=== PATIENT | male | born 1985 | race Caucasian/White ===

== ENCOUNTER 2023-06-17 22:26 | Emergency (ER) | payer SELFPAY ==
[2023-06-17 22:33] VITALS: BP 158/98; PULSE 80; RESP 18; TEMP 36.8; O2SAT 99
--- NOTE | 2023-06-17 22:40 | W.ED.GENAD ---
Discharge Plan Disposition Patient Disposition: Home Condition: Good Discharge Details Clinical Impression: Pain, dental Primary Care Provider: None,None ED Provider: Darrel Dover Home Meds and New Rx's Prescriptions: New amoxicillin-pot clavulanate 875-125 mg tablet 1 tab PO BID Qty: 20 0RF Discharge Instructions Instructions: Toothache (ED) Additional Instructions: The block we administered should help improve your pain. Please take 800 mg of ibuprofen every 6 hours and 1000 mg of Tylenol every 6 hours to help with the inflammation and pain. These are the maximum doses. Please take the antibiotic as directed to help with the infection in your tooth. Please use the dental list that we have provided to contact the dentist for prompt follow-up and evaluation for tooth removal. If you notice any worsening of your symptoms, or any new symptoms such as difficulty swallowing, difficulty breathing, vomiting, diarrhea, fever, chills, shortness of breath, chest pain, numbness, weakness, or fainting , please return immediately to the emergency department for reevaluation. Please follow up with your primary care provider as soon as possible for reassessment and reevaluation. As always, it was a pleasure participating in your medical care today. Medical Decision Making This is a very pleasant 37-year-old male with no significant past medical history who presents today for dental pain. Patient states that about 6 months ago his left lower posterior molar just anterior to the wisdom tooth broke off. Since then it has been causing mild pain, however over the last few days it has become notably painful. Pain is made worse with chewing. He did try calling a dentist today but no one could get him in to have the tooth pulled. He denies fever or chills. He denies difficulty swallowing or breathing. He is not on any antibiotics. No other complaints at this time. He did take Tylenol at home but this did not relieve the pain at all. Exam demonstrates notable dental caries throughout, no evidence of periapical abscess, swelling, or airway compromise. No evidence of Ludewig's angina. Suspect pulpitis. Discussed risks and benefits of dental block, patient elected voluntarily and verbally to receive dental block after risks and benefits were discussed. Dental block performed and patient has near complete resolution of his pain. Will give Augmentin for home use, and the first dose here. Dental sheet was given for patient. Will give Tylenol Motrin here as well. Recommend continued NSAIDs and antibiotic outpatient with prompt dental follow-up. Discussed red flags for which to return. I have extensively reviewed the treatment plan and discharge instructions with the patient. I have addressed all patient concerns at this time. The patient was made aware of what symptoms to monitor for that would warrant a return to the emergency department. Discussed the plan with the patient, they demonstrate verbal understanding and agreement with our assessment and plan at this time. The documentation in this chart was dictated using [employer] dictation software. Please excuse any dictation errors. HPI General Date/Time Provider Initiated Documentation: 06/17/23 22:28. HPI Narrative: This is a very pleasant 37-year-old male with no significant past medical history who presents today for dental pain. Patient states that about 6 months ago his left lower posterior molar just anterior to the wisdom tooth broke off. Since then it has been causing mild pain, however over the last few days it has become notably painful. Pain is made worse with chewing. He did try calling a dentist today but no one could get him in to have the tooth pulled. He denies fever or chills. He denies difficulty swallowing or breathing. He is not on any antibiotics. No other complaints at this time. He did take Tylenol at home but this did not relieve the pain at all. Related Data Home Medications Medication Instructions Recorded Confirmed amoxicillin 875 mg-potassium 1 tab PO BID #20 tabs 06/17/23 clavulanate 125 mg tablet Previous Rx's Medication Instructions Recorded amoxicillin 875 mg-potassium 1 tab PO BID #20 tabs 06/17/23 clavulanate 125 mg tablet Allergies Allergy/AdvReac Type Severity Reaction Status Date / Time No Known Allergies Allergy Unverified 06/17/23 22:41 General Stated Complaint: DentalOral SHAW: 4 Review of Systems All systems reviewed & are unremarkable except as noted in HPI and below PFSH All Active Problems Pain, dental (Acute) Social History Smoking risk assessment performed?: No Exam Narrative Exam Narrative: 1.Const: Well-nourished, Well-developed, appearing stated age 2.Eyes: PERRL, no conjunctival injection, and symmetrical lids. 3.ENT: Atraumatic external nose and ears. Moist MM. Neck: Symmetric, trachea midline, No thyromegaly. Notable dental caries throughout. Fractured teeth in the left posterior inferior component including the molar. No periapical abscess on palpation though. No swelling or signs of airway compromise. No evidence of Ludewig's angina. 4.CVS: +S1/S2, No murmurs or gallops. Peripheral pulses 2+ and equal in all extremities. Brisk capillary refill in all extremities. 5.RESP: Unlabored respiratory effort. Clear to auscultation bilaterally. No wheezes rales or rhonchi 6.GI: Soft, Nontender/Nondistended, No hepatosplenomegaly. No guarding or rebound. 7.MSK: Normocephalic/Atraumatic, Extremities w/o deformity or ttp No cyanosis or clubbing, Normal movement of all extremities 8.Skin: Warm, Dry. No rashes or lesions. 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 Sensation grossly intact, no focal neurologic deficits. 10.Psych: (AAO) x3. Appropriate mood and affect Course Vital Signs Vital signs: Vital Signs Temperature 36.8 C 06/17/23 22:33 Pulse 80 06/17/23 22:33 Respiratory Rate 18 06/17/23 22:33 Blood Pressure 158/98 H 06/17/23 22:33 Pulse Oximetry 99 06/17/23 22:33 Temperature 36.8 C 06/17/23 22:33 Temperature Source Oral 06/17/23 22:33 Pulse 80 06/17/23 22:33 Respiratory Rate 18 06/17/23 22:33 Blood Pressure 158/98 H 06/17/23 22:33 Pulse Oximetry 99 06/17/23 22:33 Pain Level 8 06/17/23 22:33 Procedures Nerve Block Nerve Block 1: Time out performed: Yes Local Anesthetic: Bupivicaine 0.25% Amount of anesthesia used (mL): 6 Side: left Intraoral Nerve Block: inferior alveolar Procedure Successful: Yes Patient Tolerated Procedure: well and no complications Complications: none
--- OUTSIDE RECORDS SUMMARY | 2023-06-17 22:40 | XMS_ITS | Continuity of Care Document ---
Author Name Unknown Address [address], [place] [address] Phone [facility] Address [address], [place] [address] Phone Care Team Providers Care Wash Driller Name Role Phone PCP, of Choice Primary Care Provider MD Hayder Friedman Emergency Provider Care Teams Patient Care Team Team Status: Active Member Role Status Dates of Choice PCP Primary Care Provider Active Visit Care Team Team Status: Inactive Member Role Status Dates of Choice PCP Primary Care Provider Active Hayder Vasquez MD Emergency Provider Active Chief Complaint and Reason for Visit Chief Complaint ANKLE INJURY OR PAIN Allergies, Adverse Reactions, Alerts No known allergies Social History Smoking Status Status Start Date End Date Date of Observa tion Smokes tobacco daily (finding) January 31, 2023 6:30am Observation Status Observation Response Date of Response Substance/Street Drug Use No January 312022 6:30am Substance Use Treatment No January 6:30am substance use type does not use January 31 6:30am Smoking Status Current every day smoker January 6:30am Additional Data Assigned Sex Male Problems Active Problems Medical Problem Onset Date Status Left ankle sprain Active Medications No known medications Procedures Procedure Date Performed Status Ankle 3 vw Min LT January 31, 2023 6:32am active Vital Signs Vital Reading Result Reference Range Collection Date/Time Weight 145.14 kg January 31, 2023 6:28am Body Temperature 98.7 [degF] 97.6-99.6 January 31 023 6:28am Heart Rate 91 /min 60-100 January 31, 2023 6:28am Respiratory rate 16 /min 12-24 January 31 023 6:28am Oxygen saturation by Pulse oximetry 99 % 95-10 0 January 31, 2023 6:28am BP Systolic 148 mm[Hg] 100-140 January 31, 2023 6:28am BP Diastolic 97 mm[Hg] 50-85 January 31, 2023 6:28am Advance Directives Advance Directive Response Recorded Date/ Time Does patient have an Advance Directive? No January 31, 2023 6:42am Does patient have a COLST form? No January 31, 2023 6:42am Insurance Providers Guarantor POOJA BARNETT Address [address] [address] Contact Info. Home Phone: Payer Policy Id Coverage Id Subscriber's Name Subscriber Id Effective Date Expiration Date WORKERS COMP 999 999 POOJA BARNETT 999 Encounters Encounter Location(s) Arrival/Admit Date Discharge/Depart Date Provider(s) Departed Emergency [facility]-Emergency Department January 31, 2023 6:14am January 31, 2023 7:13am null Functional Status Observation Response Date Recorded Living Situation Home January 31, 2023 7:13am Plan of Treatment Future Tests Future scheduled test information is unavailable Pending Tests Test Name Ordered Date Scheduled Date Ankle 3 vw Min LT January 31, 2023 6:32am January 6:32am Future Visits Future appointment information is unavailable Referrals to Other Providers Reason for Referral Referral Start Date Provider Stefanie silvestre Contact Information Provider Address No Pcp Future Procedures Future procedure information is unavailable Future Medications Future medication information is unavailable Patient Instructions Ankle Sprain (DC) Hospital Discharge Instructions Additional Instructions Patient contact information: Primary phone:[phone] (Note to patient; Please let our registration staff know if this phone number is not correct so we can keep our systems accurate) *Regarding pending labs, you will only be called for positive/abnormal results. Negative/normal results can be found on the patient portal. 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 History of Present Illness The patient is a 37 yo M who presents to [facility] Emergency Department with complaint of ANKLE INJURY OR PAIN. The patient arrived byWalk-In from a home environment. The history was provided by the patient. RN notes were reviewed, past medical history was reviewed and social history was reviewed. This evaluation was initiated on 01/31/23 06:32 Patient stepped out of his truck and turned his left ankle with lateral ankle pain. He has had minor sprains in the past but nothing ever like this. Pain isquite severe. Otherwise he has been well lately. Review of Systems ROS Constitutional NO Report of Fever Heme/Lymph NO Report of Anticoagulated Endocrine NO Report of Blood Sugar Problem Allergy/Immune NO Report of Immunocompromised Past Medical History Allergies No Known Allergies Allergy (Verified 01/31/23 06:34) Home Medications No Known Home Medications 01/31/23 [Confirmed 01/31/23] Vital Signs Table Temp Pulse Resp BP Pulse Ox O2 Del Method 01/31/23 06:28 98.7 F 91 16 148/97 H 99 Room Air Primary Exam The patient's heart rate is 91, blood pressure is 148/97, temperature is 98.7 F, and respiratory rate is 16. Oxygen saturation is 99%; The patient weighs 145 kg. Mental status is awake and appropriate. There is no apparent respiratory difficulty. The patient has warm extremities, normal capillary refill and normal peripheral pulses. The skin is normal color, dry and no rash. The patient appears uncomfortable; secondary to pain Detailed Exam Const well appearing and overweight Eyes conjunctivae normal and EOM intact bilaterally Resp negative tachypnea or labored Card NL peripheral perfusion; negative lower extremity edema Musc Swelling and tenderness around the left lateral malleolus. Normal sensation andcirculation in the foot. Minimal tenderness medially and no pain over the proximal fifth metatarsal or proximal fibula Neuro no focal deficits Psych mental status: mental status grossly normal Ordered Tests and Interventions Category Date Time Status Ankle Stirrup (ED/UC) .ONCE Care 01/31/23 06:57 Ordered Crutches (ED/UC) .Once Care 01/31/23 06:57 Ordered Ankle 3 vw Min LT Stat Exams 01/31/23 06:32 Taken Data Review Radiological images were viewed by Provider X-ray of left ankle shows no fracture POC Test Results: No Data to Display Medical Decision Making MDM Time: 06:59 I applied Jace wrap and ankle stirrup. He will be on crutches with weightbearingas tolerated and gradually advance activities. He will need to limit activitiesat work but states he does not need a work note. Discharge Plan Provider Discharge Plan Clinical Impression: Left ankle sprain Patient Disposition: Home/Self Care Instructions: Ankle Sprain (DC) Activity Restrictions/Additional Instructions: Patient contact information: Primary phone:[phone] (Note to patient; Please let our registration staff know if this phone number isnot correct so we can keep our systems accurate) *Regarding pending labs, you will only be called for positive/abnormal results. Negative/normal results can be found on the patient portal. Referrals: PCP,of Choice [Primary Care Provider] - 1-2 Weeks Stand Alone Forms: ED General DC Instructions Prescriptions/Home Medications: No Action No Known Home Medications <Electronically signed by Hayder Vasquez MD> [phone] cc: ~
[2023-06-17] MEDS: Amox. 875/Clav. 125, 2 TABS/BTL 1 TAB PO (22:48)
[2023-06-17] MEDS: Ibuprofen 800 MG TAB PO (22:48)
[2023-06-17] MEDS: Acetaminophen 500 MG TAB 1000 MG PO (22:48)
== END 2023-06-17 22:49 | disposition home or self-care (01) ==
PROVIDERS: Emergency Provider Student in an Organized Health Care Education/Training Program
DX: K08.89 Other specified disorders of teeth and supporting structures (principal)
CPT/HCPCS: 64400